=== PATIENT | female | born 1955 | race Caucasian/White ===

== ENCOUNTER 2018-02-08 23:50 | Emergency (ER) | payer OTHER ==
[~2018-02-08] VITALS: Ht 160 cm; Wt 70.3 kg
[2018-02-09] MEDS ORDERED: LISINOPRIL10 MG PO (00:05)
[2018-02-09 00:58] LABS: HEMATOCRIT 35.5 % (37.0-47.0); HEMOGLOBIN 12.5 gm/dL (12.0-15.0); MCH 34.5 pg (26.0-34.0); MCHC 35.1 g/dL (28.0-37.0); MCV 98.2 fL (80.0-100.0); MPV 7.9 fl. (7.2-11.1); NUCLEATED RBCS 0 /100WBC; PLATELET COUNT* 251 thou/uL (150-400); RBC 3.61 mil/uL (4.20-5.00); RDW-CV 13.6 % (10.5-14.5); WBC 9.8 thou/uL (4.0-11.0)
[2018-02-09 01:06] LABS: CALCIUM 8.8 mg/dL (8.5-10.1); CREATININE 0.7 mg/dL (0.6-1.3)
[2018-02-09 01:07] LABS: POTASSIUM 2.7 mmol/L (3.5-5.1)
[2018-02-09 01:16] LABS: ALBUMIN 3.7 g/dL (3.4-5.0); TOTAL BILIRUBIN 1.6 mg/dL (<0.1-1.0); TOTAL PROTEIN 6.4 g/dL (6.4-8.2)
[2018-02-09 01:57] LABS: ABSOLUTE EOSINOPHILS 0.1 thou/uL (0.0-0.7); ABSOLUTE LYMPHOCYTES 0.9 thou/uL (0.8-5.3); ABSOLUTE MONOCYTES 0.5 thou/uL (0.0-1.2); ABSOLUTE NEUTROPHILS 8.3 thou/uL (1.6-8.1); PLATELET ESTIMATE ADEQUATE
[2018-02-09 01:58] LABS: ANISOCYTOSIS Occasional; TOXIC GRANULATION Occasional
[2018-02-09] MEDS ORDERED: PROMETHAZINE-P118 M1 PO (03:09)
[2018-02-09] MEDS ORDERED: MUCUS ER1200 MG PO (03:09)
[2018-02-09] MEDS ORDERED: AMOXICILLIN 50500 M1 PO (03:09)
[2018-02-09] MEDS ORDERED: KLOR-CON 1010 MEQ PO (03:42)
[2018-02-09 03:59] VITALS: BP 103/54
--- NOTE | 2018-02-09 16:22 | EKG ---
[place] [address] ELECTROCARDIOGRAM REPORT Name: DOLORES OBRIEN Room: [facility]#: [id number] Admission: 02/08/18 Attend Phys: Discharge: 02/09/18 Date of : 59 Report #: [id number] THIS REPORT FOR: //name// [facility] ED Test Date: 2018-02-09 Test Time: 00:03:10 Pat Name: DOLORES OBRIEN Department: Room: Gender: F Production Honing Machine Operator: Alberto LOVE : 1955 Requested By: Sadie Pierre Order Number: [id number] Madison MD: Keegan Villarreal Measurements Intervals [place] Rate: 85 P: NE: QRS: 34 QRSD: 88 T: 19 QT: 401 QTc: 477 Interpretive Statements sinus rhythm Minimal ST depression, lateral leads Borderline prolonged QT interval No previous ECG available for comparison Electronically Signed On 02-09-2018 16:21:49 WEDGER MACHINE by Keegan Villarreal [email or web address] <ELECTRONICALLY SIGNED> By: Keegan Villarreal MD, [facility] 02/09/18 1621 0003 0003 Keegan Villarreal MD, FACC /EPI
== END 2018-02-09 04:02 | disposition left against medical advice (07) ==
LOC: M.ERS 23:50
PROVIDERS: Personal Emergency Response Attendant
DX: E87.1 Hypo-osmolality and hyponatremia (principal); E87.6 Hypokalemia; R11.10 Vomiting, unspecified; I10 Essential (primary) hypertension; Z87.01 Personal history of pneumonia (recurrent); Z88.7 Allergy status to serum and vaccine

== ENCOUNTER 2018-02-13 14:37 | Inpatient (IN) | payer OTHER ==
[~2018-02-13] VITALS: Ht 160 cm; Wt 80.7 kg
[~2018-02-13 14:37] MED LIST: AMOXICILLIN 50500 M1 PO; KLOR-CON 1010 MEQ PO; LISINOPRIL10 MG PO; MUCUS ER1200 MG PO; PROMETHAZINE-P118 M1 PO
[2018-02-13 14:53] VITALS: BP 141/68
[2018-02-13 15:31] LABS: HEMATOCRIT 36.5 % (37.0-47.0); HEMOGLOBIN 12.6 gm/dL (12.0-15.0); MCH 33.6 pg (26.0-34.0); MCHC 34.5 g/dL (28.0-37.0); MCV 97.5 fL (80.0-100.0); MPV 7.9 fl. (7.2-11.1); NUCLEATED RBCS 0 /100WBC; PLATELET COUNT* 294 thou/uL (150-400); RBC 3.75 mil/uL (4.20-5.00); RDW-CV 13.6 % (10.5-14.5); WBC 9.2 thou/uL (4.0-11.0)
[2018-02-13 15:39] LABS: ANION GAP 9 mmol/L (7-16); BUN 4 mg/dL (7-18); CALCIUM 9.4 mg/dL (8.5-10.1); CHLORIDE 88 mmol/L (98-107); CO2 29 mmol/L (21-32); CREATININE 0.5 mg/dL (0.6-1.3); GLUCOSE 135 mg/dL (70-99); SODIUM 126 mmol/L (136-145)
[2018-02-13 15:40] LABS: POTASSIUM 2.6 mmol/L (3.5-5.1)
[2018-02-13 15:46] LABS: ALBUMIN 3.4 g/dL (3.4-5.0); ALKALINE PHOSPHATASE 90 U/L (46-116); SGOT 37 U/L (15-37); SGPT 37 U/L (30-65); TOTAL BILIRUBIN 0.9 mg/dL (<0.1-1.0); TOTAL PROTEIN 6.6 g/dL (6.4-8.2); TROPONIN-I LEVEL <0.06 ng/mL (<0.06)
[2018-02-13 16:10] LABS: ABSOLUTE BASOPHILS 0.1 thou/uL (0.0-0.2); ABSOLUTE LYMPHOCYTES 0.8 thou/uL (0.8-5.3); ABSOLUTE MONOCYTES 0.7 thou/uL (0.0-1.2); ABSOLUTE NEUTROPHILS 7.5 thou/uL (1.6-8.1); MYELOCYTES 1 %
[2018-02-13 16:11] LABS: PLATELET ESTIMATE ADEQUATE
[2018-02-13] MEDS ORDERED: HYDROCHLOROTH12.5 M1 PO (17:40)
[2018-02-13] MEDS ORDERED: AMOXICILLIN 50500 MG PO ×2 (17:41→20:59)
[2018-02-13 18:22] LABS: MAGNESIUM 1.4 mg/dL (1.8-2.4); PHOSPHORUS* 2.3 mg/dL (2.5-4.9)
[2018-02-13 18:31] LABS: URINE BILIRUBIN NEGATIVE (Negative); URINE BLOOD TRACE (Negative); URINE CLARITY CLEAR; URINE COLOR YELLOW; URINE GLUCOSE-RANDOM NEGATIVE (Negative); URINE KETONES NEGATIVE (Negative); URINE LEUKOCYTES-REFLEX 2+ (Negative); URINE NITRITE-REFLEX NEGATIVE (Negative); URINE PROTEIN NEGATIVE (Negative); URINE SPECIFIC GRAVITY <= 1.005 (1.005-1.030)
[2018-02-13 18:39] LABS: AMP/METHAMP Negative (Negative); BARBITURATES Negative (Negative); BENZODIAZEPINES Negative (Negative); COCAINE Negative (Negative); METHADONE Negative (Negative); OPIATES POSITIVE (Negative); PCP Negative (Negative); THC POSITIVE (Negative)
[2018-02-13 18:50] LABS: CASTS None Seen /LPF (None Seen); CRYSTALS None Seen /LPF (None Seen); SQUAMOUS 4-10 Moderate /LPF (0-3)
[2018-02-13 18:51] LABS: BACTERIA-REFLEX >30 Many /HPF (None Seen); URINE RBC None Seen /HPF (0-2); URINE WBC-REFLEX 0-5 Rare /HPF (0-5)
[2018-02-13 20:36] VITALS: BP 125/68
[2018-02-13] MEDS ORDERED: PROMETHAZINE V118 M1 PO (21:03)
--- NOTE | 2018-02-13 23:00 | NUR ---
PT ADMITTED TO TELEMETRY ROOM 223 WITH AN ADMITTING DIAGNOSIS OF HYPOKALEMIA, HYPONATREMIA. PT DENIES PAIN, N/V/D. IVF INFUSING ORDERED. PT SPOUSE AT BEDSIDE. PT TRACING SR ON MONITOR. PT HAS PMH OF TUBALIGATION, HTN. PT REPORTS THAT SHE WENT TO HER PCP EARLIER IN THE WEEK AND HAD BLOOD DRAWN AND TODAY HER PCP CALLED AND TOLD HER THAT HER POTASSIUM AND SODIUM WAS LOW AND TO COME TO THE ED. PT ADMITTED FROM ED. PT IS UP INDEPENDENTLY WITH STEADY GAIT. CLWR.
[2018-02-14] VITALS: BP 118/52
[2018-02-14 04:00] VITALS: BP 114/54
[2018-02-14 04:27] LABS: MCH 33.9 pg (26.0-34.0); MCHC 34.2 g/dL (28.0-37.0); RBC 3.08 mil/uL (4.20-5.00)
[2018-02-14 04:36] LABS: HEMATOCRIT 30.6 % (37.0-47.0); MCV 99.2 fL (80.0-100.0); MPV 8.3 fl. (7.2-11.1); RDW-CV 13.2 % (10.5-14.5); WBC 8.1 thou/uL (4.0-11.0)
[2018-02-14 04:40] LABS: CALCIUM 8.3 mg/dL (8.5-10.1); CREATININE 0.5 mg/dL (0.6-1.3); HEMOGLOBIN 10.4 gm/dL (12.0-15.0); MAGNESIUM 2.1 mg/dL (1.8-2.4); PHOSPHORUS* 1.5 mg/dL (2.5-4.9); POTASSIUM 3.5 mmol/L (3.5-5.1)
[2018-02-14 07:25] VITALS: BP 95/49
--- NOTE | 2018-02-14 09:45 | NUR ---
PATIENT CARE ASSUMED AT 0700. PATIENT AOX4, BUT FLAT. DENIES PAIN. DENIES NAUSEA/VOMITING. DENIES HALLUCINATIONS. DENIES ANXIETY. PATIENT DOES HAVE VISIBLE TREMORS. CIWA 2. PATIENT COOPERATIVE THIS MORNING UPON AM ASSESSMENT. ALL MEDICATIONS GIVEN. AFTER RETURNING TO PATIENT'S ROOM WITH BANANA BAG, PATIENT STATED SHE ONLY AGREED TO STAY HERE ONE NIGHT TO GET HER SODIUM AND POTASSIUM BACK TO NORMAL LIMITS "WHICH THEY ARE" AND THAT SHE IS GOING HOME WHETHER THE PHYSICIAN LETS HER OR NOT. EDUCATED PATIENT ON WITHDRAWL SYMPTOMS, CONTINUED LOW ELECTROLYTES. PATIENT ADAMANET. NURSE CALMED PATIENT TO AT LEAST SPEAK WITH THE PHYSICIAN THIS AM. PHYSICIAN STILL HAS NOT MADE ROUNDS.
[2018-02-14] MEDS ORDERED: VITAFOL-OB+DHA1 EACH PO (11:32)
[2018-02-14] MEDS ORDERED: PROTONIX40 M1 PO (11:35)
[2018-02-14 12:05] VITALS: BP 95/49
[2018-02-14 12:07] VITALS: BP 95/49
--- NOTE | 2018-02-14 12:25 | NUR ---
PATIENT ADAMENT ABOUT DISCHARGE. DISCHARGED BY DR SIDDIQUI. SCRIPT GIVEN FOR VITAMIN AND PANTOPRAZOLE. EDUCATION GIVEN ABOUT ALCOHOL CESSATION. PATIENT APPEARS TO BE RESISTANT TO ALL EDUCATION. EDUCATION GIVEN ON THE NEEDS TO FOLLOW UP WITH PRIMARY CARE PHYSICIAN. VOICES UNDERSTANDING. IV AND MONITOR TAKEN OFF. DISCHARGED BY WHEELCHAIR WITH ELECTRICAL DESIGN ENGINEER AT 1225 WITH . ALL DISCHARGE ISNTRUCTIONS REINFORCED WITH . SCRIPTS GIVEN TO .
--- NOTE | 2018-02-15 10:11 | EKG ---
[place] [address] ELECTROCARDIOGRAM REPORT Name: DOLORES OBRIEN Room: [address] IN [facility].#: [id number] Admission: 02/13/18 Attend Phys: Ananda Mazariegos MD Discharge: 02/14/18 Date of : 59 Report #: [id number] THIS REPORT FOR: //name// [facility] ED Test Date: 2018-02-13 Test Time: 16:41:46 Pat Name: DOLORES OBRIEN Department: Room: [facility] Gender: F Bin Cleaner: Kristie CARLOS : 1955 Requested By: Asa Gates Order Number: [id number] MD: Roosevelt Renee Measurements Intervals [place] Rate: 84 P: 68 TX: 159 QRS: 15 QRSD: 94 T: 10 QT: 385 QTc: 456 Interpretive Statements Sinus rhythm Borderline low voltage, extremity leads Compared to ECG 02/09/2018 00:03:10 ST (T wave) deviation no longer present Electronically Signed On 02-15-2018 10:11:16 INTELLIGENCE INTERN by Roosevelt Renee [email or web address] <ELECTRONICALLY SIGNED> By: Roosevelt Renee MD, FACC 02/15/18 1011 1641 164 Roosevelt Renee MD, FAC /EPI
== END 2018-02-14 12:25 | disposition home or self-care (01) | DRG 641 ==
LOC: M.ERS 14:37 → M.TBA-ER 16:01 → M.2W 21:03
PROVIDERS: Emergency Medicine Emergency Medical Services; ADMIT Family Medicine
DX: E87.6 Hypokalemia (principal); E83.42 Hypomagnesemia; I10 Essential (primary) hypertension; E87.1 Hypo-osmolality and hyponatremia; F10.10 Alcohol abuse, uncomplicated; E83.39 Other disorders of phosphorus metabolism; Z87.01 Personal history of pneumonia (recurrent); Z88.7 Allergy status to serum and vaccine; Z79.899 Other long term (current) drug therapy